=== PATIENT | male | born 1980 | race Caucasian/White ===

== ENCOUNTER 2020-05-13 18:59 | Emergency (ER) | payer BC ==
[~2020-05-13] VITALS: Ht 198.1 cm; Wt 107.0 kg
[2020-05-13 20:15] VITALS: BP 146/81
== END 2020-05-13 20:15 | disposition home or self-care (01) | DRG 605 ==
LOC: ED 18:59
PROC: 0HQGXZZ Repair Left Hand Skin, External Approach (ICD-10-PCS; principal; 2020-05-13)
DX: S61.211A Laceration without foreign body of left index finger without damage to nail, initial encounter (principal); W29.8XXA Contact with other powered hand tools and household machinery, initial encounter; Y92.009 Unspecified place in unspecified non-institutional (private) residence as the place of occurrence of the external cause